=== PATIENT | female | born 1980 | race Hispanic/Latino ===

== ENCOUNTER → 2024-02-09 08:12 | Outpatient (REF) | payer BC, SELFPAY ==
[2024-02-09 19:39] LABS: Urine Albumin Trace (Neg - Trace); Urine Bilirubin Negative (Negative); Urine Character Clear (Clear); Urine Color Yellow; Urine Glucose Negative (Negative); Urine Ketone Negative (Negative); Urine Leukocyte 2+ (Negative); Urine Nitrite Negative (Negative); Urine Occult Blood 3+ (Negative); Urine Specific Gravity 1.005 (<1.030); Urine Urobilinogen Negative (Neg - 1+)
[2024-02-09 19:48] LABS: Urine Bacteria Many (Negative); Urine White Cell 26-30 /HPF (0-5)
== END ==
LOC: CLAB 08:12
PROVIDERS: ATTENDING PHYSICIAN Nurse Practitioner Adult Health
DX: R39.9 Unspecified symptoms and signs involving the genitourinary system (principal)
CPT/HCPCS: 81003; 81015; 87086; 87147

== ENCOUNTER 2024-02-09 22:37 | Emergency (ER) | payer BC, SELFPAY ==
[2024-02-09 22:47] VITALS: BP 99/67
[2024-02-09 23:08] LABS: % Basophils 0.4 % (0-2); % Eosinophils 0.5 % (0-6); % Immature Granulocytes 0.4 % (0-0.5); % Lymphocytes 9.2 % (20.5-51.1); % Monocytes 8.1 % (1.7-9.3); % Neutrophils 81.4 % (42.2-75.2); Absolute Basophils 0.1 10^3/uL (0-0.2); Absolute Eosinophils 0.1 10^3/uL (0-0.7); Absolute Immature Granulocytes 0.1 10^3/uL (0-0.05); Absolute Lymphocytes 1.5 10^3/uL (1.2-3.4); Absolute Monocytes 1.3 10^3/uL (0.1-0.6); Absolute Neutrophils 13.5 10^3/uL (1.4-6.5); Hematocrit 35.3 % (37.0-47.0); Hemoglobin 12.3 g/dL (12.0-16.0); Mean Corp Hgb Conc. 34.8 g/dL (33.0-37.0); Mean Corpuscular Hgb 32.3 pg (27.0-31.0); Mean Corpuscular Volume 92.7 fL (81.0-99.0); Nucleated Red Blood Cells % 0 %; Platelet Count 230 10^3/uL (130-400); Red Blood Cell Count 3.81 10^6/uL (4.20-5.40); Urine Albumin Trace (Neg - Trace); Urine Bilirubin Negative (Negative); Urine Character Clear (Clear); Urine Color Yellow; Urine Glucose Negative (Negative); Urine Ketone Trace (Negative); Urine Leukocyte 1+ (Negative); Urine Nitrite Negative (Negative); Urine Occult Blood 2+ (Negative); Urine Specific Gravity 1.005 (<1.030); Urine Urobilinogen Negative (Neg - 1+); White Blood Cell Count 16.6 10^3/uL (4.8-10.8)
[2024-02-09 23:14] LABS: Urine Bacteria Few (Negative)
[2024-02-09 23:20] LABS: HCG, Serum Qualitative Screen Negative
[2024-02-09 23:26] LABS: ALT (SGPT) 12 U/L (0-35); AST (SGOT) 20 U/L (14-36); Albumin 4.1 g/dl (3.5-5.0); Alkaline Phosphatase 46 U/L (38-126); Blood Urea Nitrogen 12 mg/dl (7-17); Carbon Dioxide 26 mmol/L (22-30); Chloride 103 mmol/L (98-107); Glucose 93 mg/dl (70-99); Potassium 4.4 mmol/L (3.5-5.1); Sodium 136 mmol/L (135-145); Total Bilirubin 0.5 mg/dl (0.2-1.3); Total Protein 6.8 g/dl (6.3-8.2); eGFR > 60.00
[2024-02-10 01:00] VITALS: BP 103/59
--- NOTE | 2024-02-10 01:29 | ED.GENMED ---
History of Present Illness
General
Chief Complaint: Urinary Symptoms
Source: patient
Exam Limitations: none
Time Seen by Provider: 02/10/24 00:50
Travel History
Have you had any contact with someone who has COVID-19?: No
Do you have any symptoms of coronavirus? Fever > 100 degrees, chills, cough, shortness of breath, sore throat, loss of taste or smell, muscle aches, or headache?: No
History of Present Illness
History of Present Illness:
This is a 43 year old female that comes in with c/o back pain and abd pain. States that she went to the PCP earlier yesterday and she was told that she has a UTI. States that they gave her Nitrofurantoin which she has taken 2 tablets. States that
she also took Azo. States that she took Ibuprofen at 10:30am and 6:30pm . States that at 6:30pm she started with a fever and lower abd pain. States that she has a mild headache and mild burning with urination. Denies any chills, chest pain, SOB,
nausea, vomiting, diarrhea, dizziness.
Past History
Past History
ED Past Medical History: None; Negative Asthma, HTN, Hypercholesterolemia or NIDDM
ED Past Surgical History:
Social History
Tobacco: Non-smoker
Alcohol: None
Personal:
Living: with family
Review of Systems
Review of Systems
All Other Systems: ROS reviewed and negative except as documented in HPI and ROS
Constitutional: Reports fever; Denies chills
EENT: Reports no symptoms
Respiratory: Reports no symptoms; Denies cough or trouble breathing
Cardiac: Reports no symptoms; Denies chest pain
ABD/GI: Reports abdominal pain; Denies nausea, vomiting or diarrhea
: Reports dysuria; Denies frequency or urgency
Musculoskeletal: Reports back pain
Skin: Reports no symptoms
Neurological: Reports headache (Mild); Denies dizzy
Psychiatric: Reports no symptoms
Phy Exam
General Physical Exam
General Presentation: mild distress
General age: appears stated age
General Skin: warm and dry
General Habitus: normal
General Mental: alert
General Hydration: appears well hydrated
ENT Exam
ENT Exam: TM's normal, pharynx normal and neck supple
Eye Exam
Eye Exam: EOMI
Cardiovascular Exam
Cardiovascular Exam: regular rate/rhythm, no edema and normal peripheral pulses
Pulmonary Exam
Pulmonary Exam: lungs clear, no respiratory distress, no rales, chest non tender, no crackles, no rhonchi, no wheezing and no cough
Gastrointestinal Exam
Gastrointestinal Exam: normal bowel sounds, soft, no organomegaly, no pulsatile mass, non distended, cva tenderness (Right sided) and tender (Right lower abd tenderness with palpation)
Musculoskeletal Exam
Musculoskeletal Exam: full ROM and no edema
Skin Exam
Skin Exam: normal color, warm/dry, no rash and no petechia
Psychiatric Exam
Psychiatric Exam: normal mood/affect
Course
Orders/Labs/Results
Orders:
Orders
02/09/24 22:53
Test Result ONCE
02/09/24 23:01
Complete Blood Count/With Diff Urgent
Comprehensive Metabolic Panel Urgent
HCG, Serum Qualitative Screen Urgent
Urinalysis Reflex To Culture Urgent
Date Specimen was Collected: 02/09/24
Time Specimen was Collected: 22:53
Urine Microscopic Reflex Cult Urgent
Urine Culture Urgent
ARIAN Source: U
Specimen Description:
Date Specimen was Collected: 02/09/24
Time Specimen was Collected: 22:53
02/10/24 01:28
0.9% Sodium Chloride 1000 ml [Nss] 1,000 ml IV BOLUS
CefTRIAXone [Rocephin] 1,000 mg IV NOW STA
Ketorolac [Toradol] 30 mg IV NOW STA
02/10/24 01:29
CT Abd/pel Without Iv Or Oral Urgent
Comment:
Reason For Exam: rIGHT SIDED ABD PAIN
02/10/24 02:19
Lactic Acid Urgent
Blood Culture Q30M
ARIAN Source: Blood/Venous
Specimen Description:
Blood Culture Q30M
ARIAN Source: Blood/Venous
Specimen Description:
Abnormal Lab Results
02/09/24
23:01
WBC 16.6 H 10^3/uL
(4.8-10.8)
RBC 3.81 L 10^6/uL
(4.20-5.40)
Hct 35.3 L %
(37.0-47.0)
MCH 32.3 H pg
(27.0-31.0)
Abs Immat Gran (auto) 0.1 H 10^3/uL
(0-0.05)
Absolute Neuts (auto) 13.5 H 10^3/uL
(1.4-6.5)
Absolute Monos (auto) 1.3 H 10^3/uL
(0.1-0.6)
Neutrophils % 81.4 H %
(42.2-75.2)
Lymphocytes % 9.2 L %
(20.5-51.1)
Urine Ketones Trace A
(Negative)
Ur Occult Blood Reflex 2+ A
(Negative)
Leukocyte Esterase Rfl 1+ A
(Negative)
Urine RBC 3-6 A /HPF
(0-2)
Urine WBC (Reflex) 11-15 A /HPF
(0-5)
Urine Bacteria (Reflex) Few A
(Negative)
02/09/24 23:01
02/09/24 23:01
Leukocytosis, Urine positive for infection. HCG negative. Lactic acid normal at 0.8
Vital Signs
Initial and Last Documented VS:
Initial Vital Signs
Temp Pulse Resp BP Pulse Ox
99.8 F 93 18 99/67 100
02/09/24 22:47 02/09/24 22:47 02/09/24 22:47 02/09/24 22:47 02/09/24 22:47
Last Documented Vital Signs
Temp Pulse Resp BP Pulse Ox
99.6 F 83 18 98/59 97
02/10/24 03:18 02/10/24 03:18 02/10/24 03:18 02/10/24 03:18 02/10/24 03:18
MDM/Problems Addressed
Differential Diagnosis Includes:
Pyelonephritis, Renal calculus, Appendicitis
MDM/Problems Addressed:
This is a 43 year old female that comes in with c/o fever. States that she went to the PCP yesterday and was diagnosed with UTI. States that at 6:30pm she started with a fever. States that she had a UTI in the past and her BP ws very low and she was
in the hospital.
Will get Labs, IV fluids, Pain medication and CT to r/o any obstructing stone.
Back into see patient. Explained that her WBC are elevated and this is most likely a kidney infection. Patient was given IV Rocephin and her Lactic acid is normal. Offered patient admission but states that she is feeling much better. Will discharge
patient home on antibiotics. Patient to continue with Tylenol or Ibuprofen for pain. Return with fever, vomiting, or any other concerns
Chronic conditions affecting care:
NA
Acute Exacerbation and/or Progression of Chronic Illness:
NA
*Radiology
Radiology exam reviewed: radiology read reviewed (CT night hawk- NO obstructing urinary calculi. Mild free pelvic fluid. Unremarkable GB and appendix. )
*Pulse Oximetry
Patient hypoxic: no
*EKG
Interpreted by ED Provider?: NA
Rate: EKG- N/A
*Glass Science Engineer Interpretation
Rate: Glass Science Engineer- N/A
*Critical Care Note
Total Time (30-74mins, 75-104mins- exclusive of procedures): Not Applicable
ED Attending Note
-
Portions of this chart may have been created with voice recognition software.� Occasional wrong word or��sound alike� substitutions may have occurred due to the inherent limitations of voice recognition software.
Discharge Plan
Departure
Patient Disposition: Home (Routine Discharge)
Date of Disposition: 02/10/24
Time of Disposition: 03:15
Patient with high blood pressure during this ER visit?: No
Condition: Good
Covid-19: Not Applicable
Discharge Problem:
Acute pyelonephritis
Instructions: Urinary Tract Infection, Adult ED
Prescriptions:
New
cefdinir 300 mg capsule
300 mg PO BID Qty: 14 0RF
No Action
phenazopyridine [Azo] 95 mg Tablet
95 mg PO TID PRN (Reason: urinary discomfort)
ferrous sulfate [Iron (ferrous sulfate)] 325 mg (65 mg iron) Tablet
325 mg PO DAILY
nitrofurantoin monohyd/m-cryst 100 mg Capsule
100 mg PO BID
Referrals:
Emanuel Hsu Jr., DO [Family Provider] - Follow up in 2-3 days
Stand Alone Forms: Return to Work
Activity Restrictions/Additional Instructions:
As discussed, your blood work shows that your WBC are elevated. This appears to be a kidney infection. Your CT is negative for any renal calculus and your Appenix was normal. Please increase your water intake to 8-8oz glasses daily. You have been
given IV antibiotic here and a prescription has been sent to your Pharmacy. This will treat the kidney infection. Please take as directed. Follow up with the family doctor for a repeat urine after you are off antibiotics. Tylenol or Ibuprofen for
fever. IF YOU HAVE INCREASED OR CHANGING PAIN, FEVER THAT IT NOT CONTROLLED OR YOU HAVE ANY OTHER CONCERNS PLEASE RETURN TO THE EMERGENCY ROOM. PLEASE STOP THE OTHER ANTIBIOTIC YOU WERE GIVEN.
Interventions
Interventions:
*Risk Screen - Suicide Last Done: 02/09/24 22:47
*General Assessment Last Done: 02/09/24 22:47
*Neglect/Abuse Screening Last Done: 02/09/24 22:47
ED- Fall Risk Assessment Last Done: 02/10/24 01:04
ED-Female Genitourinary Assessment Last Done: 02/10/24 01:04
Discharge Date and Time
Print Language: EMIRATI
[2024-02-10] MEDS: NSS 1000 IV (02:22)
[2024-02-10] MEDS: TORADOL 30 MG IV (02:22)
[2024-02-10] MEDS: ROCEPHIN 1000 MG IV (02:23)
[2024-02-10 03:11] LABS: Lactic Acid 0.8 mmol/L (0.7-2.0)
[2024-02-10 03:18] VITALS: BP 98/59
== END 2024-02-10 03:35 | disposition home or self-care (01) ==
LOC: EMR 22:37
PROVIDERS: Clinical Nurse Specialist Family Health; Emergency Medicine; EMERGENCY PHYSICIAN Emergency Medicine; FAMILY PHYSICIAN Family Medicine
DX: N10 Acute pyelonephritis (principal); R51.9 Headache, unspecified; N39.0 Urinary tract infection, site not specified; Z87.440 Personal history of urinary (tract) infections
CPT/HCPCS: 99284; 96374; 96375; 74176; 80053; 81003; 81015; 83605; 84703; 85025; 87040; 87086

== ENCOUNTER → 2024-02-28 12:56 | Outpatient (REF) | payer BC, SELFPAY ==
[2024-02-28 13:06] LABS: Urine Albumin Negative (Neg - Trace); Urine Bilirubin Negative (Negative); Urine Color Yellow; Urine Glucose Negative (Negative); Urine Ketone Negative (Negative); Urine Leukocyte Negative (Negative); Urine Nitrite Negative (Negative); Urine Occult Blood 2+ (Negative); Urine Urobilinogen Negative (Neg - 1+)
[2024-02-28 13:07] LABS: Urine Character Clear (Clear)
[2024-02-28 13:18] LABS: Urine Squamous Cell >30 /LPF (Few)
[2024-02-28 13:19] LABS: Urine White Cell 0-2 /HPF (0-5)
== END ==
LOC: CLAB 12:56
PROVIDERS: ATTENDING PHYSICIAN Nurse Practitioner Adult Health
DX: N10 Acute pyelonephritis (principal)
CPT/HCPCS: 36415; 81003; 81015; 87086

== ENCOUNTER → 2024-03-06 10:18 | Outpatient (REF) | payer BC, SELFPAY | LOC: HWRAD 10:18 | PROVIDERS: ATTENDING PHYSICIAN Nurse Practitioner Adult Health | DX: R39.9 Unspecified symptoms and signs involving the genitourinary system (principal); R31.29 Other microscopic hematuria | CPT/HCPCS: 76770 ==

== ENCOUNTER → 2024-04-12 07:35 | Outpatient (REF) | payer BC, SELFPAY | LOC: MRI 3T 07:35 | PROVIDERS: ATTENDING PHYSICIAN Family Medicine; REFERRING PHYSICIAN Obstetrics & Gynecology | DX: R39.9 Unspecified symptoms and signs involving the genitourinary system (principal) | CPT/HCPCS: 72197; A9575 ==

== ENCOUNTER → 2024-08-14 11:21 | Outpatient (REF) | payer BC, SELFPAY ==
[2024-08-14 12:03] LABS: % Basophils 0.6 % (0-2); % Eosinophils 3.3 % (0-6); % Immature Granulocytes 0.2 % (0-0.5); % Lymphocytes 32.8 % (20.5-51.1); % Monocytes 8.2 % (1.7-9.3); % Neutrophils 54.9 % (42.2-75.2); Absolute Eosinophils 0.2 10^3/uL (0-0.7); Absolute Lymphocytes 1.8 10^3/uL (1.2-3.4); Absolute Monocytes 0.4 10^3/uL (0.1-0.6); Hematocrit 38.6 % (37.0-47.0); Hemoglobin 12.4 g/dL (12.0-16.0); Mean Corp Hgb Conc. 32.1 g/dL (33.0-37.0); Mean Corpuscular Hgb 31.3 pg (27.0-31.0); Mean Corpuscular Volume 97.5 fL (81.0-99.0); Nucleated Red Blood Cells % 0 %; Platelet Count 246 10^3/uL (130-400); Red Blood Cell Count 3.96 10^6/uL (4.20-5.40); Red Cell Dist. Width 12.2 % (11.5-14.5); White Blood Cell Count 5.4 10^3/uL (4.8-10.8)
[2024-08-14 12:10] LABS: ALT (SGPT) 16 U/L (0-35); AST (SGOT) 24 U/L (14-36); Albumin 4.5 g/dl (3.5-5.0); Alkaline Phosphatase 43 U/L (38-126); Blood Urea Nitrogen 9 mg/dl (7-17); Calcium 9.3 mg/dl (8.4-10.2); Carbon Dioxide 28 mmol/L (22-30); Chloride 104 mmol/L (98-107); Glucose 91 mg/dl (70-99); HDL Cholesterol 77 mg/dl; LDL Cholesterol, Calculated 106 mg/dl; Potassium 4.4 mmol/L (3.5-5.1); Sodium 139 mmol/L (135-145); Total Bilirubin 0.4 mg/dl (0.2-1.3); Total Cholesterol 203 mg/dl (50-199); Total Protein 6.9 g/dl (6.3-8.2); Triglyceride 102 mg/dl (10-149); Very Low Density Lipoprotein 20 mg/dl (0-30); eGFR > 60.00
[2024-08-14 12:38] LABS: TSH Reflex To Free T4 2.84 uIU/ml (0.47-4.68)
== END ==
LOC: OLAB 11:21
PROVIDERS: ATTENDING PHYSICIAN Family Medicine
DX: Z13.1 Encounter for screening for diabetes mellitus (principal); Z13.29 Encounter for screening for other suspected endocrine disorder; R53.83 Other fatigue
CPT/HCPCS: 36415; 80053; 80061; 84443; 85025

== ENCOUNTER → 2024-09-20 11:07 | Outpatient (REF) | payer BC, SELFPAY | LOC: WDC 11:07 | PROVIDERS: ATTENDING PHYSICIAN Family Medicine | DX: Z12.31 Encounter for screening mammogram for malignant neoplasm of breast (principal) | CPT/HCPCS: 77063; 77067 ==